=== PATIENT | male | born 1960 | race African-American/Black ===

== ENCOUNTER 2017-10-31 09:34 | Emergency (ER) | payer MEDICAID ==
[~2017-10-31] VITALS: Ht 177.8 cm; Wt 82.0 kg
[2017-10-31] MEDS ORDERED: KETOROLAC 60MG/2ML VIAL IM ONE (11:00)
[2017-10-31 11:01] VITALS: BP 123/85
== END 2017-10-31 11:48 | disposition home or self-care (01) ==
LOC: ER 09:37
DX: M54.31 Sciatica, right side (principal)
CPT/HCPCS: 96372; 99283; J1885

== ENCOUNTER 2018-05-10 20:01 | Emergency (ER) | payer MEDICAID ==
[~2018-05-10] VITALS: Ht 182.9 cm; Wt 70.0 kg
[2018-05-10] MEDS ORDERED: KETOROLAC 60MG/2ML VIAL IM ONE (23:00)
[2018-05-10] MEDS ORDERED: ACETAMINOPHEN 500MG TABLET PO ONE (23:00)
[2018-05-10 23:15] VITALS: BP 113/82
== END 2018-05-10 23:32 | disposition home or self-care (01) ==
LOC: ER 20:01
DX: M54.31 Sciatica, right side (principal); M25.552 Pain in left hip; M25.551 Pain in right hip; M54.5 Low back pain; F17.200 Nicotine dependence, unspecified, uncomplicated
CPT/HCPCS: 96372; 99283; J1885

== ENCOUNTER 2019-02-28 12:27 | Emergency (ER) | payer MEDICAID ==
[~2019-02-28] VITALS: Ht 182.9 cm; Wt 73.0 kg
[2019-02-28 12:32] VITALS: BP 130/80
== END 2019-02-28 14:52 | disposition left against medical advice (07) ==
LOC: ER 12:27
DX: F10.129 Alcohol abuse with intoxication, unspecified (principal); Z53.21 Procedure and treatment not carried out due to patient leaving prior to being seen by health care provider; Y90.9 Presence of alcohol in blood, level not specified

== ENCOUNTER 2020-03-23 15:10 | Emergency (ER) | payer MEDICAID ==
[~2020-03-23] VITALS: Ht 180.3 cm; Wt 77.0 kg
[2020-03-23 17:12] VITALS: BP 132/78
== END 2020-03-23 17:17 | disposition home or self-care (01) ==
LOC: ER 15:10
DX: K12.1 Other forms of stomatitis (principal); I11.0 Hypertensive heart disease with heart failure; I50.9 Heart failure, unspecified
CPT/HCPCS: 99283

== ENCOUNTER 2020-04-22 13:56 | Inpatient (IN) | payer MEDICAID ==
[~2020-04-22] VITALS: Ht 172.7 cm; Wt 66.6 kg
[2020-04-22] MEDS ORDERED: SODIUM CHLORIDE 0.9% 1,000 ML IV ONE (14:13)
[2020-04-22] MEDS ORDERED: LEVETIRACETAM 1000MG/100ML 100 ML IV ONE (14:15)
[2020-04-22] MEDS ORDERED: LORAZEPAM 2MG/ML CPJ IV ONE (14:15)
[2020-04-22] MEDS ORDERED: MAGNESIUM 2 G PREMIX 50 ML IV ONE (14:30)
[2020-04-22 15:29] LABS: HEMATOCRIT. 33.1 % (42.0-52.0); HEMOGLOBIN. 11.2 g/dL (14.0-18.0); MEAN CORPUSCULAR HEMOGLOBIN 31.5 pg (28.0-32.0); MEAN CORPUSCULAR VOLUME 92.9 fL (80.0-94.0); RED BLOOD CELL COUNT 3.56 mill/uL (4.7-6.1); RED CELL DISTRIBUTION WIDTH 13.6 % (11.6-14.6)
[2020-04-22 15:32] LABS: PLATELET 164 x1000/uL (130-400)
[2020-04-22 15:33] LABS: CHLORIDE 105 mEq/L (98-107)
[2020-04-22 15:39] LABS: ETHANOL BLOOD < 10 mg/dL
[2020-04-22 16:24] LABS: PLATELET ESTIMATE NORMAL
[2020-04-22 18:06] LABS: CLARITY URINE CLEAR (CLEAR); COLOR URINE YELLOW (YELLOW); KETONES URINE 3+ (NEGATIVE); LEUKOCYTE ESTERASE URINE TRACE (NEGATIVE); NITRITE URINE NEGATIVE (NEGATIVE); OCCULT BLOOD URINE NEGATIVE (NEGATIVE); PROTEIN URINE 2+ (NEGATIVE); SPECIFIC GRAVITY URINE 1.024 (1.005-1.030)
[2020-04-22] MEDS ORDERED: ONDANSETRON HCL 4MG/2ML INJ IV PRN (18:15)
[2020-04-22] MEDS ORDERED: LEVETIRACETAM 500 MG in SODIUM CHLORIDE 0.9% 100 ML IV SCH (18:15)
[2020-04-22] MEDS ORDERED: DIPHENHYDRAMINE 50MG/ML VIAL IV PRN (18:15)
[2020-04-22] MEDS ORDERED: ACETAMINOPHEN 325MG TABLET PO PRN (18:15)
[2020-04-22 18:19] LABS: *AMPHETAMINES SCREEN URINE NEGATIVE (NEGATIVE); *BARBITURATES SCREEN URINE NEGATIVE (NEGATIVE); *BENZODIAZEPINES SCREEN URINE PRESUMTIVE POSITIVE (NEGATIVE); *COCAINE SCREEN URINE NEGATIVE (NEGATIVE)
[2020-04-22 18:20] LABS: CANNABINOID URINE SCREEN NEGATIVE (NEGATIVE); METHADONE URINE SCREEN NEGATIVE (NEGATIVE); OPIATES URINE SCREEN NEGATIVE (NEGATIVE); PHENCYCLIDINE URINE SCREEN NEGATIVE (NEGATIVE)
[2020-04-22] MEDS ORDERED: MVI, ADULT NO.1 10 ML, FOLIC ACID 1 MG, THIAMINE HCL 100 MG in SODIUM CHLORIDE 0.9% 1,0... IV NR ×4 (18:30)
[2020-04-22 19:11] LABS: PHOSPHORUS 2.7 mg/dL (2.5-4.9)
[2020-04-22 20:35] VITALS: BP 134/76
[2020-04-22] MEDS ORDERED: LEVETIRACETAM 500MG PREMIX 100 ML IV SCH (21:00)
[2020-04-22 22:00] VITALS: BP 134/76
[2020-04-22] MEDS: CHLORDIAZEPOXIDE 25MG CAPSULE PO SCH (22:35)
[2020-04-22] MEDS: LEVETIRACETAM 500MG PREMIX 100 ML IV SCH (23:51)
[2020-04-23 00:13] VITALS: BP 137/84
[2020-04-23 04:00] VITALS: BP 135/70
[2020-04-23 06:11] LABS: BASOPHILS % 0.9 % (0.0-2.0); EOSINOPHILS % 1.6 % (0.0-5.0); HEMOGLOBIN. 9.8 g/dL (14.0-18.0); LYMPHOCYTES % 14.8 % (20.0-50.0); MEAN CORPUSCULAR HEMOGLOBIN 31.5 pg (28.0-32.0); MEAN CORPUSCULAR VOLUME 93.8 fL (80.0-94.0); MEAN PLATELET VOLUME 8.2 fl (7.4-10.4); MONOCYTES % 13.9 % (2.0-8.0); NEUTROPHILS % 68.8 % (40.0-76.0); PLATELET 139 x1000/uL (130-400); RED BLOOD CELL COUNT 3.09 mill/uL (4.7-6.1); RED CELL DISTRIBUTION WIDTH 13.5 % (11.6-14.6)
[2020-04-23 06:31] LABS: CHLORIDE 106 mEq/L (98-107)
[2020-04-23] MEDS: CHLORDIAZEPOXIDE 25MG CAPSULE PO SCH ×3 (06:36→21:27)
[2020-04-23 06:44] LABS: LDL CHOLESTEROL 65 mg/dL (5-100)
[2020-04-23 06:47] LABS: HDL CHOLESTEROL 100 mg/dL (40-59)
[2020-04-23 08:03] VITALS: BP 146/86
[2020-04-23] MEDS: LEVETIRACETAM 500MG PREMIX 100 ML IV SCH ×2 (08:51→21:27)
[2020-04-23 11:46] VITALS: BP 118/79
[2020-04-23] MEDS ORDERED: MAGNESIUM 2 G PREMIX 50 ML IV NR (12:00)
[2020-04-23 16:21] VITALS: BP 127/77
[2020-04-23 20:46] VITALS: BP 150/83
[2020-04-24 00:35] VITALS: BP 154/82
[2020-04-24 04:00] VITALS: BP 155/82
[2020-04-24] MEDS: CHLORDIAZEPOXIDE 25MG CAPSULE PO SCH ×3 (06:00→21:58)
[2020-04-24] MEDS: LEVETIRACETAM 500MG PREMIX 100 ML IV SCH ×2 (11:53→21:58)
[2020-04-24] MEDS: MULTIVITAMINS,THER W-MINERALS TABLET PO SCH (11:53)
[2020-04-24 12:00] VITALS: BP 148/64
[2020-04-24] MEDS ORDERED: L25 MT (12:31)
[2020-04-24] MEDS ORDERED: LORA-249 MT (12:31)
[2020-04-24] MEDS ORDERED: KEPP500 MT (12:31)
[2020-04-24] MEDS ORDERED: MULT-230 MT (12:31)
[2020-04-24] MEDS: LORAZEPAM 2MG/ML CPJ IV PRN ×2 (14:25→21:58)
[2020-04-24] MEDS ORDERED: HALOPERIDOL LACTATE 5MG/ML VIAL IM PRN (15:45)
[2020-04-24 16:00] VITALS: BP 176/94
[2020-04-24 20:16] VITALS: BP 154/80
[2020-04-24 23:53] VITALS: BP 146/80
[2020-04-25 04:00] VITALS: BP 144/85
[2020-04-25] MEDS: CHLORDIAZEPOXIDE 25MG CAPSULE PO SCH ×3 (05:33→21:26)
[2020-04-25 08:00] VITALS: BP 169/95
[2020-04-25] MEDS: LEVETIRACETAM 500MG PREMIX 100 ML IV SCH ×2 (09:01→21:26)
[2020-04-25] MEDS: MULTIVITAMINS,THER W-MINERALS TABLET PO SCH (09:01)
[2020-04-25] MEDS: CLONIDINE 0.1MG TABLET PO PRN ×2 (09:12→12:57)
[2020-04-25 12:00] VITALS: BP 168/82
[2020-04-25 16:00] VITALS: BP_SYST 121; BP_SYST 138; BP_DIAS 59; BP_DIAS 66
[2020-04-25 20:19] VITALS: BP 119/70
[2020-04-26] VITALS: BP 126/81
[2020-04-26 04:38] VITALS: BP 128/76
[2020-04-26] MEDS: CHLORDIAZEPOXIDE 25MG CAPSULE PO SCH ×3 (05:31→21:17)
[2020-04-26 07:07] LABS: HEMATOCRIT. 33.2 % (42.0-52.0); MEAN CORPUSCULAR HEMOGLOBIN 31.1 pg (28.0-32.0); MEAN CORPUSCULAR VOLUME 93.7 fL (80.0-94.0); MEAN PLATELET VOLUME 8.6 fl (7.4-10.4); PLATELET 178 x1000/uL (130-400); RED BLOOD CELL COUNT 3.54 mill/uL (4.7-6.1); RED CELL DISTRIBUTION WIDTH 13.5 % (11.6-14.6)
[2020-04-26 07:45] LABS: FOLIC ACID (FOLATE) SERUM 10.6 ng/mL (>5.38)
[2020-04-26 07:46] LABS: CHLORIDE 103 mEq/L (98-107)
[2020-04-26 08:00] VITALS: BP 138/79
[2020-04-26 08:09] LABS: TOTAL IRON BINDING CAPACITY 195 ug/dL (250-450)
[2020-04-26] MEDS: LEVETIRACETAM 500MG PREMIX 100 ML IV SCH ×2 (08:33→21:18)
[2020-04-26] MEDS: MULTIVITAMINS,THER W-MINERALS TABLET PO SCH (08:33)
[2020-04-26] MEDS ORDERED: POTASSIUM CHLORIDE 20MEQ TABLET SR PO SCH (09:30)
[2020-04-26] MEDS: LORAZEPAM 2MG/ML CPJ IV PRN (09:38)
[2020-04-26 11:19] LABS: PLATELET ESTIMATE NORMAL
[2020-04-26 12:00] VITALS: BP 116/71
[2020-04-26 16:00] VITALS: BP 129/86
[2020-04-26] MEDS ORDERED: SODIUM CHLORIDE 0.9% 1,000 ML IV ONE (17:00)
[2020-04-26] MEDS ORDERED: MAGNESIUM 4 G PREMIX 100 ML IV ONE (18:00)
[2020-04-26 20:00] VITALS: BP 116/79
[2020-04-27] VITALS: BP 135/86
[2020-04-27 04:00] VITALS: BP 133/86
[2020-04-27] MEDS: CHLORDIAZEPOXIDE 25MG CAPSULE PO SCH ×3 (05:49→22:02)
[2020-04-27 07:05] LABS: HEMATOCRIT. 32.2 % (42.0-52.0); HEMOGLOBIN. 10.8 g/dL (14.0-18.0); MEAN CORPUSCULAR HEMOGLOBIN 31.5 pg (28.0-32.0); MEAN PLATELET VOLUME 8.1 fl (7.4-10.4); PLATELET 203 x1000/uL (130-400); RED BLOOD CELL COUNT 3.43 mill/uL (4.7-6.1); RED CELL DISTRIBUTION WIDTH 13.6 % (11.6-14.6)
[2020-04-27 07:48] LABS: CHLORIDE 105 mEq/L (98-107)
[2020-04-27 08:09] VITALS: BP 138/94
[2020-04-27] MEDS: LEVETIRACETAM 500MG PREMIX 100 ML IV SCH ×2 (08:49→22:02)
[2020-04-27] MEDS: MULTIVITAMINS,THER W-MINERALS TABLET PO SCH (08:49)
[2020-04-27 14:07] LABS: PLATELET ESTIMATE NORMAL
[2020-04-27 16:00] VITALS: BP 116/79
[2020-04-27 20:32] VITALS: BP 129/88
[2020-04-28 00:46] VITALS: BP 126/84
[2020-04-28 04:00] VITALS: BP 132/63
[2020-04-28 08:00] VITALS: BP 121/88
[2020-04-28] MEDS: LEVETIRACETAM 500MG PREMIX 100 ML IV SCH ×2 (08:55→21:09)
[2020-04-28] MEDS: MULTIVITAMINS,THER W-MINERALS TABLET PO SCH (08:55)
[2020-04-28 12:00] VITALS: BP 113/80
[2020-04-28 16:17] VITALS: BP 130/94
[2020-04-28 20:43] VITALS: BP 122/84
[2020-04-29 00:40] VITALS: BP 121/83
[2020-04-29 04:00] VITALS: BP 112/65
[2020-04-29 08:00] VITALS: BP 110/71
[2020-04-29] MEDS: MULTIVITAMINS,THER W-MINERALS TABLET PO SCH (09:38)
[2020-04-29] MEDS: LEVETIRACETAM 500MG PREMIX 100 ML IV SCH ×2 (09:39→21:32)
[2020-04-29 12:00] VITALS: BP 119/76
[2020-04-29 16:00] VITALS: BP 114/79
[2020-04-29 20:34] VITALS: BP 115/78
[2020-04-30] VITALS: BP 105/66
[2020-04-30 04:00] VITALS: BP 123/80
[2020-04-30 06:05] LABS: HEMATOCRIT. 32.6 % (42.0-52.0); HEMOGLOBIN. 10.8 g/dL (14.0-18.0); MEAN CORPUSCULAR HEMOGLOBIN 30.9 pg (28.0-32.0); MEAN CORPUSCULAR VOLUME 93.1 fL (80.0-94.0); MEAN PLATELET VOLUME 7.5 fl (7.4-10.4); PLATELET 323 x1000/uL (130-400)
[2020-04-30 06:35] LABS: CHLORIDE 103 mEq/L (98-107)
[2020-04-30 08:00] VITALS: BP 106/81
[2020-04-30] MEDS: MULTIVITAMINS,THER W-MINERALS TABLET PO SCH (09:27)
[2020-04-30] MEDS: LEVETIRACETAM 500MG PREMIX 100 ML IV SCH (09:27)
[2020-04-30 12:00] VITALS: BP 116/78
[2020-04-30 13:44] VITALS: BP 116/78
[2020-04-30 18:02] LABS: PLATELET ESTIMATE NORMAL
== END 2020-04-30 14:50 | disposition home or self-care (01) | DRG 775 ==
LOC: ER 13:56 → EDBEDREQ 14:22 → 6WST 16:49 → EDBEDREQ 17:04 → ENRESERV 19:57 → 6WST 04-24 18:54
PROVIDERS: ADMIT Internal Medicine; ATTEND Internal Medicine
DX: F10.239 Alcohol dependence with withdrawal, unspecified (principal); G40.89 Other seizures; I11.0 Hypertensive heart disease with heart failure; F23 Brief psychotic disorder; I50.9 Heart failure, unspecified; M47.812 Spondylosis without myelopathy or radiculopathy, cervical region; G99.2 Myelopathy in diseases classified elsewhere; M48.02 Spinal stenosis, cervical region; M48.061 Spinal stenosis, lumbar region without neurogenic claudication; M51.16 Intervertebral disc disorders with radiculopathy, lumbar region; F10.10 Alcohol abuse, uncomplicated; R32 Unspecified urinary incontinence; R00.0 Tachycardia, unspecified; Z78.1 Physical restraint status; Z79.899 Other long term (current) drug therapy
CPT/HCPCS: 36415; 71045; 72141; 72148; 73502; 80048; 80053; 80061; 80076; 80305; 80320; 81003; 82607; 82728; 82746; 83540; 83550; 83735; 83880; 84100; 84145; 84153; 84484; 85025; 93005; 93970; 96365; 97162; 99291; J1200; J1630; J1953; J2060; J3411; J3475; J3490; J7030; G0103; G0480

== ENCOUNTER 2020-05-03 17:02 | Emergency (ER) | payer MEDICAID ==
[~2020-05-03] VITALS: Ht 170.2 cm; Wt 73.0 kg
[~2020-05-03 17:02] MED LIST: KEPP500 MT; L25 MT; LORA-249 MT; MULT-230 MT
[2020-05-03] MEDS ORDERED: KETOROLAC 30MG/ML VIAL IM ONE (17:45)
[2020-05-03 19:30] VITALS: BP 117/75
== END 2020-05-03 19:30 | disposition home or self-care (01) ==
LOC: ER 17:02
DX: M43.02 Spondylolysis, cervical region (principal); Z79.899 Other long term (current) drug therapy
CPT/HCPCS: 93005; 96372; 99283; J1885